=== PATIENT | male | born 1940 | race Hispanic/Latino ===

== ENCOUNTER 2017-05-11 10:52 | Inpatient (IN) | payer MEDICARE ==
[2017-05-11 11:04] VITALS: RESP 20
[2017-05-11 11:58] LABS: BASO # 0.1 K/uL (0.0-0.2); BASO % 0.8 % (0.0-2.0); EOS # 0.1 K/uL (0.0-0.7); EOS % 1.5 % (0.0-4.0); LYMPH # 1.6 K/uL (1.0-4.3); LYMPH % 21.4 % (20.0-40.0); MEAN CORPUSCULAR HGB CONC 33.7 g/dL (33.0-37.0); MEAN PLATELET VOLUME 7.7 fL (7.2-11.7); MONO # 0.6 K/uL (0.0-0.8); MONO % 7.8 % (0.0-10.0); NEUT # 5.3 K/uL (1.8-7.0); NEUT % 68.5 % (50.0-75.0); RBC 5.17 Mil/uL (4.40-5.90); RED CELL DISTRIBUTION WIDTH 14.5 % (11.5-14.5); WHITE BLOOD COUNT 7.7 K/uL (4.8-10.8)
[2017-05-11 12:14] LABS: ALB/GLOB RATIO 1.1 (1.0-2.1); ALBUMIN 4.2 g/dL (3.5-5.0); ALT/SGPT 29 U/L (21-72); AST/SGOT 31 U/L (17-59); BLOOD UREA NITROGEN 17 mg/dL (9-20); GFR AFRICAN-AMERICAN > 60; GFR NON-AFRICAN AMERICAN > 60
[2017-05-11] MEDS ORDERED: Iohexol 350mg/ml 100 ML ONE (13:38)
--- NOTE | 2017-05-11 15:07 | CT ---
PROCEDURE: CT scan of the neck dated 05/11/2017 HISTORY: Left mandibular mass; rule out abscess COMPARISON: No prior study available for comparison TECHNIQUE: Contiguous helical/ transaxial sections of of the neck with intravenous contrast. Coronal and sagittal reformats generated. Intravenous contrast dose: 100 cc of Visipaque 320 Radiation dose: DLP 438.04 mGy-cm This CT exam was performed using one or more of the following dose reduction techniques: Automated exposure control, adjustment of the mA and/or kV according to patient size, and/or use of iterative reconstruction technique. FINDINGS: The at current study reveals large elliptical shaped soft tissue density (suspected phlegmon) of anterior to the left body of the mandible which abuts the buccal surface of the mandible. There 2 localized areas of what may represent pre-existing radicular cystic changes and possibly now destructive changes of the mandible itself B-mode posterior of which appears to be associate with a small overlying low attenuation possibly representing an abscess. , estimated size proximally 12.6 x 6.2 mm. The smaller radicular cystic changes within the left anterior and right parasagittal on mandible is well. . NASOPHARYNX: Unremarkable. SUPRAHYOID NECK: Unremarkable oropharynx, oral cavity, parapharyngeal space and retropharyngeal space. INFRAHYOID NECK: Unremarkable larynx, hypopharynx, and supraglottic space. Vocal cords intact. GLANDS: There is very slight asymmetry of the submandibular glands left-sided which is slightly larger than the right - nonspecific. Enlarged heterogeneous thyroid gland extending inferiorly into the superior mediastinum on the left side. . The thyroid gland contains multiple varying sized low-attenuation foci -nodules with scattered calcifications. Thyroid ultrasound and/or nuclear isotope imaging recommended. The thyroid gland does compresses and mildly displaces trachea to the right side CERVICAL SPINE: Multilevel degenerative spondylosis of the cervical spine. Note also made of a apparent spina bifida occulta involving C2 segment. VASCULAR STRUCTURES: Cervical vasculature is patent throughout though there are some minor partially calcified atherosclerotic plaque changes seen both carotid bifurcations right greater than left. OTHER FINDINGS: Minor on scarring changes right lung apex. IMPRESSION: Findings most likely represent soft tissue phlegmon with subjacent small abscess abutting the left aspect of the mandible with incomplete localized destructive changes of subjacent cortex along the buccal surface of the mandible. Mild subcutaneous tissues seen in the overlying subcutaneous tissues. There appears to be enlarged left-sided submandibular lymph node measuring nearly 19 mm and smaller submandibular lymph nodes slightly posteriorly located measuring approximately 11 mm. Prominent on left-sided jugulodigastric lymph node measuring approximately 11 mm. Smaller on lymph nodes seen within both posterior cervical spaces right jugulodigastric and right submandibular regions. Markedly enlarged heterogeneous thyroid gland with scattered calcification. Thyroid ultrasound followup and/or nuclear isotope imaging recommended
[2017-05-11] MEDS ORDERED: Clindamycin 600 MG in Sodium Chloride 0.9% 100 ML IV STA (15:47)
[2017-05-11] MEDS ORDERED: Clindamycin 600mg/50ml NS 600 MG/50 ML BAG IVPB ONE (16:00)
--- NOTE | 2017-05-11 16:26 | C.PDOC ---
History Of Present Illness 77 year old male presents to the ED c/o left facial swelling for the past month. Patient was seen previously and prescribed antibiotics Augmentin, Flagyl and also Motrin but he reports not improvement. Patient has not been able to see an oral surgeon as of yet, and presents today concerned about cancer. Patient denies difficulty swallowing, fever, chills, nausea, vomit, diarrhea, blurry vision. Time Seen by Provider: 05/11/17 11:24 Chief Complaint (Nursing): Medical Clearance History Per: Patient History/Exam Limitations: no limitations Onset/Duration Of Symptoms: Days Current Symptoms Are (Timing): Still Present Reports Recently: Treated By A Physician Recent travel outside of the [place]: No Additional History Per: Patient Past Medical History Reviewed: Historical Data, Nursing Documentation, Vital Signs Vital Signs: Last Vital Signs Temp 98.1 F 05/11/17 14:55 Pulse 78 05/11/17 14:55 Resp 20 05/11/17 14:55 BP 125/82 05/11/17 14:55 Pulse Ox 98 05/11/17 16:26 - Medical History PMH: HTN Surgical History: Hernia Repair - [facility] Procedures EXPLORATORY LAPAROTOMY (01/26/97) INCIS HERNIA REPAIR-GRFT (09/09/98) Family History: States: Unknown Family Hx - Social History Hx Tobacco Use: Yes Hx Alcohol Use: No Hx Substance Use: No - Immunization History Hx Tetanus Toxoid Vaccination: No Hx Influenza Vaccination: No Hx Pneumococcal Vaccination: No Review Of Systems Constitutional: Negative for: Fever, Chills ENT: Positive for: Mouth Pain, Mouth Swelling Cardiovascular: Negative for: Chest Pain Respiratory: Negative for: Cough Skin: Negative for: Rash Neurological: Negative for: Weakness, Numbness Physical Exam - Physical Exam Appears: Non-toxic, No Acute Distress Skin: Normal Color, Warm, Dry Head: Atraumatic, Normacephalic Eye(s): bilateral: Normal Inspection Ear(s): Bilateral: Normal Nose: No Discharge Oral Mucosa: Moist, No Trismus Tongue: No Swelling Lips: No Swelling Teeth: Caries (multiple ), Other (swelling/abscess left lower molar. Pre molar teeth swelling involving the ramus of the mandible) Gingiva: Swelling, Tender Neck: Normal ROM, Supple Chest: Symmetrical Extremity: Normal ROM, No Tenderness, No Swelling Neurological/Psych: Oriented x3, Normal Speech Gait: Steady ED Course And Treatment - Laboratory Results Result Diagrams: 05/11/17 11:50 05/11/17 11:50 O2 Sat by Pulse Oximetry: 98 (ON RA) Pulse Ox Interpretation: Normal - CT Scan/US CT soft neck tissue Other Rad Studies (CT/US): Read By Radiologist, Radiology Report Reviewed CT/US Interpretation: PROCEDURE: CT scan of the neck dated 05/11/2017. HISTORY : Left mandibular mass; rule out abscess. COMPARISON: No prior study available for comparison. TECHNIQUE: Contiguous helical/ transaxial sections of of the neck with intravenous contrast. Coronal and sagittal reformats generated. Intravenous contrast dose: 100 cc of Visipaque 320. Radiation dose : DLP 438.04 mGy-cm. This CT exam was performed using one or more of the following dose reduction techniques: Automated exposure control, adjustment of the mA and/or kV according to patient size, and/or use of iterative reconstruction technique. FINDINGS: The at current study reveals large elliptical shaped soft tissue density (suspected phlegmon) of anterior to the left body of the mandible which abuts the buccal surface of the mandible. There 2 localized areas of what may represent pre-existing radicular cystic changes and possibly now destructive changes of the mandible itself B-mode posterior of which appears to be associate with a small overlying low attenuation possibly representing an abscess. , estimated size proximally 12.6 x 6.2 mm. The smaller radicular cystic changes within the left anterior and right parasagittal on mandible is well. . NASOPHARYNX: Unremarkable. SUPRAHYOID NECK: Unremarkable oropharynx, oral cavity, parapharyngeal space and retropharyngeal space. INFRAHYOID NECK: Unremarkable larynx, hypopharynx, and supraglottic space. Vocal cords intact. GLANDS: There is very slight asymmetry of the submandibular glands left-sided which is slightly larger than the right - nonspecific. Enlarged heterogeneous thyroid gland extending inferiorly into the superior mediastinum on the left side. . The thyroid gland contains multiple varying sized low-attenuation foci -nodules with scattered calcifications. Thyroid ultrasound and/or nuclear isotope imaging recommended. The thyroid gland does compresses and mildly displaces trachea to the right side. CERVICAL SPINE: Multilevel degenerative spondylosis of the cervical spine. Note also made of a apparent spina bifida occulta involving C2 segment. VASCULAR STRUCTURES: Cervical vasculature is patent throughout though there are some minor partially calcified atherosclerotic plaque changes seen both carotid bifurcations right greater than left. OTHER FINDINGS: Minor on scarring changes right lung apex. IMPRESSION: Findings most likely represent soft tissue phlegmon with subjacent small abscess abutting the left aspect of the mandible with incomplete localized destructive changes of subjacent cortex along the buccal surface of the mandible. Mild subcutaneous tissues seen in the overlying subcutaneous tissues. There appears to be enlarged left-sided submandibular lymph node measuring nearly 19 mm and smaller submandibular lymph nodes slightly posteriorly located measuring approximately 11 mm. Prominent on left-sided jugulodigastric lymph node measuring approximately 11 mm. Smaller on lymph nodes seen within both posterior cervical spaces right jugulodigastric and right submandibular regions. Markedly enlarged heterogeneous thyroid gland with scattered calcification. Thyroid ultrasound followup and/or nuclear isotope imaging recommended Medical Decision Making Medical Decision Making: Assessment: osteo/dental abscess Plan: * CT neck soft tissue * Labs * Clindamycin 600 mg in 100 ml IV Patient will be admitted to the Hospital under Dr. Shaheen Baird's service Disposition Discussed With Dr.: Patricia Baird Doctor Will See Patient In The: Hospital Counseled Patient/Family Regarding: Studies Performed, Diagnosis - Disposition Disposition: HOSPITALIZED Disposition Time: 16:26 Condition: FAIR Forms: [facility] (Ukrainian) - Clinical Impression Clinical Impression: Osteomyelitis, Dental abscess - Scribe Statement The provider has reviewed the documentation as recorded by the Scribe Teo Box All medical record entries made by the Scribe were at my direction and personally dictated by me. I have reviewed the chart and agree that the record accurately reflects my personal performance of the history, physical exam, medical decision making, and the department course for this patient. I have also personally directed, reviewed, and agree with the discharge instructions and disposition.
[2017-05-11] MEDS: Piperacill/Tazo 3.375gm in Dex 3.375 GM/50 ML BAG IVPB SCH (21:50)
[2017-05-11] MEDS ORDERED: Piperacillin/Tazobact 3.375 GM in Sodium Chloride 100 ML IVPB SCH (22:00)
[2017-05-12] MEDS: Piperacill/Tazo 3.375gm in Dex 3.375 GM/50 ML BAG IVPB SCH ×2 (05:24→13:23)
[2017-05-12] MEDS: Enoxaparin 40 mg Syringe SC SCH (09:09)
[2017-05-12] MEDS: Pantoprazole 40 mg EC Tab PO SCH (09:09)
--- NOTE | 2017-05-12 11:30 | CP.PCM.HP ---
Present on Admission - Present on Admission Any Indicators Present on Admission: No Past Patient History - Past Medical History & Family History Past Medical History?: Yes - Past Social History Smoking Status: Former Smoker - CARDIAC Hx Hypertension: Yes - MUSCULOSKELETAL/RHEUMATOLOGICAL Hx Falls: No - PSYCHIATRIC Hx Substance Use: No - ANESTHESIA Hx Anesthesia: No Hx Anesthesia Reactions: No Meds Allergies/Adverse Reactions: Allergies Allergy/AdvReac Type Severity Reaction Status Date / Time amoxicillin [From Augmentin] Allergy ITCHING Verified 05/12/17 16:44 clavulanic acid Allergy ITCHING Verified 05/12/17 16:44 [From Augmentin] Penicillins Allergy ITCHING Verified 05/12/17 16:44 piperacillin [From Zosyn] Allergy ITCHING Verified 05/12/17 16:44 tazobactam [From Zosyn] Allergy ITCHING Verified 05/12/17 16:44 Physical Exam - Constitutional Appears: Well - Head Exam Head Exam: ATRAUMATIC, NORMAL INSPECTION, NORMOCEPHALIC - Eye Exam Eye Exam: EOMI, Normal appearance, PERRL Pupil Exam: NORMAL ACCOMODATION, PERRL - ENT Exam ENT Exam: Mucous Membranes Moist, Normal Exam - Neck Exam Neck exam: Positive for: Normal Inspection - Respiratory Exam Respiratory Exam: Decreased Breath Sounds - Cardiovascular Exam Cardiovascular Exam: REGULAR RHYTHM, +S1, +S2 - GI/Abdominal Exam GI & Abdominal Exam: Diminished Bowel Sounds, Soft - Rectal Exam Rectal Exam: Deferred Results - Vital Signs Recent Vital Signs: Last Vital Signs Temp 97.4 F L 05/12/17 07:35 Pulse 66 05/12/17 07:35 Resp 20 05/12/17 07:35 BP 138/80 05/12/17 07:35 Pulse Ox 95 05/12/17 07:35 - Labs Result Diagrams: 05/11/17 11:50 05/11/17 11:50 Labs: Laboratory Results - last 24 hr 05/11/17 05/11/17 11:50 11:50 WBC 7.7 RBC 5.17 Hgb 15.0 Hct 44.5 MCV 86.0 MCH 29.0 MCHC 33.7 RDW 14.5 Plt Count 190 MPV 7.7 Neut % (Auto) 68.5 Lymph % (Auto) 21.4 Hudson % (Auto) 7.8 Eos % (Auto) 1.5 Baso % (Auto) 0.8 Neut # (Auto) 5.3 Lymph # (Auto) 1.6 Hudson # (Auto) 0.6 Eos # (Auto) 0.1 Baso # (Auto) 0.1 Sodium 139 Potassium 4.7 Chloride 100 Carbon Dioxide 27 Anion Gap 17 BUN 17 Creatinine 0.9 Est GFR ( Amer) > 60 Est GFR (Non-Af Amer) > 60 Random Glucose 87 Calcium 9.0 Total Bilirubin 0.6 AST 31 ALT 29 Alkaline Phosphatase 63 Total Protein 7.9 Albumin 4.2 Globulin 3.7 Albumin/Globulin Ratio 1.1 Assessment & Plan (1) Dental abscess Status: Acute (2) Osteomyelitis Status: Acute (3) Avulsion of skin Status: Acute (4) Right rib fracture Status: Acute - Assessment and Plan (Free Text) Plan: Continue IV Zosyn continue clindamycin ID consult ENT consult discussed with Dr. Martin who is covering the ENT doctor by him who clearly said that this patient needs to be seen by oral surgeon so tried to reach the floor staff to call [facility] and I tried to reach [facility] also try to reach it unable to get in touch with the FS surgeon also advised to speak to floor to try to transfer the patient's Continue IV clindamycin Continue IV Zosyn ID consult Patient may be transferred to any other hospital for further workup discussed with the patient Pain medications given to control the pain
[2017-05-12] MEDS: Morphine 4 MG/ML VIAL IVP PRN ×2 (14:09→22:43)
--- NOTE | 2017-05-12 16:33 | CP.PCM.PN ---
Subjective - Date & Time of Evaluation Date of Evaluation: 05/12/17 Time of Evaluation: 16:12 - Subjective Subjective: PT SEEN THIS AFTERNOON BY DR. Augustine ANDREWS. PT ADMITS TO LEFT FACIAL SWELLING X1 MONTH. ON 05/10/17 HE SAW A DENTIST IN [place], WHO EXTRACTED A TOOTH WITHOUT PRIOR EVALUATION (PER PT). PT ALSO ADMITS THAT AT THIS TIME HE WAS STARTED ON AUGMENTIN, FLAGYL, AND MOTRIN. PT SEEN TODAY AT BEDSIDE SCRATCHING HIS CHEST AND BACK; ADMITS THAT HE HAS HAD ITCHINESS TO HIS GENERAL BODY FOR "ABOUT 2 DAYS" AND AGAIN TODAY AFTER RECEIVING THE ZOSYN IV. ATTENDING NOR PERSONAL INSURANCE ADVISOR MADE AWARE OF THIS LIKELY ALLERGIC RX TO PCN. NEW ALLERGY DISCUSSED WITH PT AND EXECUTIVE VICE PRESIDENT OF SALES ON EXAM, PT APPEARS TO BE IN NAD; RESP EASY, UNLABORED; NO DROOLING OR DYSPHAGIA NOTED; SPEECH CLEAR, NO GURGLING R SLURRING OF WORDS. [address] DR. ANDREWS: DR NOLASCO ([facility]) WHO DOES NOT COME HERE; AND DR. RIOS WHO STATED THAT ITS BETTER TO TRANSFER THE PT TO ANOTHER FACILITY THAT CAN DRAIN THIS DENTAL ABSCESS NOTED ON THE CT SCAN (SEE OFFICIAL REPORT). PER DR. Rubina ANDREWS, TRANSFER TO [facility] UNDER THE SERVICE OF THEIR [facility] SURGEON PENDING THEY ACCEPT PT UNDER THEIR SERVICE. I SPOKE TO 3 DIFFERENT OPERATORS; ALL OF WHICH PROVIDED ME WITH THEIR OMF SURGEON STAGE SETTING PAINTER APPRENTICE (DR. FEI ODONNELL); I EVEN REQUESTED TO SPEAK WITH THE [facility] RESIDENTS. I WAS TRANSFERRED TO THE DENTAL OFFICE EACH TIME AND LEFT MESSAGE WITH NO CALL BACK. I CALLED THE DENTAL CLINIC AT [phone] APPROXIMATELY 15 TIMES WITH NO ANSWER, NO ANSWERING SERVICE, AND NO VOICEMEAIL. I NOTIFIED DR. ANDREWS AND HE INSISTS ON TRANSFERRING THE PT TO [facility]. I HAVE DISCUSSED THE CASE W MY PHYSICIAN ADVISOR, DR. HAINES, WHO ALSO TRIED CALLING DR. ODONNELL'S OFFICE WITH NO ANSWER. HE DISCUSSED THIS WITH DR. Rubina ANDREWS WELL, WHO IS STILL INSISTENT ON PT GOING TO [facility]. ENDORSED THE CASE TO PAUL SCHMIDT, WHO WILL FOLLOW UP AND PLACE CALL TO THE OFFICE TO TRY AND FACILITATE TRANSFER PENDING AGREEMENT WITH OM SURGEON THAT SHE WILL TAKE THE PT UNDER HER CARE. NO FURTHER ORDERS AT THIS TIME. Objective - Vital Signs/Intake and Output Vital Signs (last 24 hours): Temp Pulse Resp BP Pulse Ox 97.4 F L 66 20 138/80 95 05/12/17 07:35 05/12/17 07:35 05/12/17 07:35 05/12/17 07:35 05/12/17 07:35 - Medications Medications: Current Medications Enoxaparin Sodium (Lovenox) 40 mg SC DAILY [facility] Last Admin: 05/12/17 09:09 Dose: Not Given Clindamycin Phosphate 900 mg/ (Sodium Chloride) 56 mls @ 100 mls/hr IVPB Q8H TISH PRN Reason: Protocol Ibuprofen (Motrin Tab) 800 mg PO Q6 PRN PRN Reason: Pain, moderate (4-7) Losartan Potassium (Cozaar) 25 mg PO DAILY [facility] Last Admin: 05/12/17 09:10 Dose: Not Given Morphine Sulfate (Morphine) 2 mg IVP Q4 PRN PRN Reason: Pain, severe (8-10) Last Admin: 05/12/17 14:09 Dose: 2 mg Pantoprazole Sodium (Protonix Ec Tab) 40 mg PO DAILY [facility] Last Admin: 05/12/17 09:09 Dose: 40 mg Pneumococcal Polyvalent Vaccine (Pneumovax 23 Vaccine) 0.5 ml IM .ONCE ONE Stop: 05/13/17 10:01 - Labs Labs: 05/11/17 11:50 05/11/17 11:50
--- NOTE | 2017-05-12 17:08 | CP.PCM.PN ---
Subjective - Date & Time of Evaluation Date of Evaluation: 05/12/17 Time of Evaluation: 17:06 - Subjective Subjective: FOLLOW UP WITH THE DENTAL CLINIC OMF SURGEON/ EULALIAE TO GET ANYONE TRY TO CONTACT [facility] OMF RESIDENT WELL FOR POSSIBLE TRANSFER NOT ABLE TO GET IN TOUCH WITH ANYONE NO FURTHER ORDER Objective - Vital Signs/Intake and Output Vital Signs (last 24 hours): Temp Pulse Resp BP Pulse Ox 97.6 F 72 20 115/79 98 05/12/17 15:00 05/12/17 15:00 05/12/17 15:00 05/12/17 15:00 05/12/17 15:00 Intake and Output: 05/12/17 05/12/17 06:59 18:59 Intake Total 550 Balance 550 - Medications Medications: Current Medications Enoxaparin Sodium (Lovenox) 40 mg SC DAILY [facility] Last Admin: 05/12/17 09:09 Dose: Not Given Clindamycin Phosphate 900 mg/ (Sodium Chloride) 106 mls @ 100 mls/hr IVPB Q8H TISH PRN Reason: Protocol Ibuprofen (Motrin Tab) 800 mg PO Q6 PRN PRN Reason: Pain, moderate (4-7) Losartan Potassium (Cozaar) 25 mg PO DAILY [facility] Last Admin: 05/12/17 09:10 Dose: Not Given Morphine Sulfate (Morphine) 2 mg IVP Q4 PRN PRN Reason: Pain, severe (8-10) Last Admin: 05/12/17 14:09 Dose: 2 mg Pantoprazole Sodium (Protonix Ec Tab) 40 mg PO DAILY [facility] Last Admin: 05/12/17 09:09 Dose: 40 mg Pneumococcal Polyvalent Vaccine (Pneumovax 23 Vaccine) 0.5 ml IM .ONCE ONE Stop: 05/13/17 10:01 - Labs Labs: 05/11/17 11:50 05/11/17 11:50
--- NOTE | 2017-05-12 18:52 | CP.PCM.CON ---
History of Present Illness - History of Present Illness History of Present Illness: 77 year old male presents to the ED c/o left facial swelling for the past month. Patient was seen previously and prescribed antibiotics Augmentin, Flagyl and also Motrin but he reports not improvement. Patient has not been able to see an oral surgeon as of yet, and presents today concerned about cancer. Patient denies difficulty swallowing, fever, chills, nausea, vomit, diarrhea, blurry vision. rx for periodontal abscess - given Zosyn but develop=ed allergic reaction started Clinda recc: OMFS eval cecil cont IV antibiotics - Medical History PMH: HTN Surgical History: Hernia Repair - [facility] Procedures EXPLORATORY LAPAROTOMY (01/26/97) INCIS HERNIA REPAIR-GRFT (09/09/98) Past Patient History - Past Medical History & Family History Past Medical History?: Yes - Past Social History Smoking Status: Former Smoker - CARDIAC Hx Hypertension: Yes - MUSCULOSKELETAL/RHEUMATOLOGICAL Hx Falls: No - PSYCHIATRIC Hx Substance Use: No - ANESTHESIA Hx Anesthesia: No Hx Anesthesia Reactions: No Meds Allergies/Adverse Reactions: Allergies Allergy/AdvReac Type Severity Reaction Status Date / Time amoxicillin [From Augmentin] Allergy ITCHING Verified 05/12/17 16:44 clavulanic acid Allergy ITCHING Verified 05/12/17 16:44 [From Augmentin] Penicillins Allergy ITCHING Verified 05/12/17 16:44 piperacillin [From Zosyn] Allergy ITCHING Verified 05/12/17 16:44 tazobactam [From Zosyn] Allergy ITCHING Verified 05/12/17 16:44 - Medications Medications: Current Medications Enoxaparin Sodium (Lovenox) 40 mg SC DAILY [facility] Last Admin: 05/12/17 09:09 Dose: Not Given Clindamycin Phosphate 900 mg/ (Sodium Chloride) 106 mls @ 100 mls/hr IVPB Q8H TISH PRN Reason: Protocol Azithromycin 500 mg/ Sodium (Chloride) 250 mls @ 166.667 mls/hr IVPB Q24H TISH PRN Reason: Protocol Ibuprofen (Motrin Tab) 800 mg PO Q6 PRN PRN Reason: Pain, moderate (4-7) Losartan Potassium (Cozaar) 25 mg PO DAILY [facility] Last Admin: 05/12/17 09:10 Dose: Not Given Morphine Sulfate (Morphine) 2 mg IVP Q4 PRN PRN Reason: Pain, severe (8-10) Last Admin: 05/12/17 14:09 Dose: 2 mg Pantoprazole Sodium (Protonix Ec Tab) 40 mg PO DAILY [facility] Last Admin: 05/12/17 09:09 Dose: 40 mg Pneumococcal Polyvalent Vaccine (Pneumovax 23 Vaccine) 0.5 ml IM .ONCE ONE Stop: 05/13/17 10:01 Results - Vital Signs Recent Vital Signs: Last Vital Signs Temp 97.6 F 05/12/17 15:00 Pulse 72 05/12/17 15:00 Resp 20 05/12/17 15:00 BP 115/79 05/12/17 15:00 Pulse Ox 98 05/12/17 15:00 - Labs Result Diagrams: 05/11/17 11:50 05/11/17 11:50
[2017-05-12] MEDS ORDERED: Azithromycin 500 MG in Sodium Chloride 0.9% 250 ML IVPB SCH (20:00)
[2017-05-13 06:46] LABS: HEMOGLOBIN 14.3 g/dL (12.0-18.0); MEAN CELL VOLUME 85.7 fL (80.0-94.0); MEAN CORPUSCULAR HEMOGLOBIN 29.3 pg (27.0-31.0); MEAN CORPUSCULAR HGB CONC 34.1 g/dL (33.0-37.0); MEAN PLATELET VOLUME 7.7 fL (7.2-11.7); RBC 4.89 Mil/uL (4.40-5.90); RED CELL DISTRIBUTION WIDTH 14.6 % (11.5-14.5); WHITE BLOOD COUNT 6.3 K/uL (4.8-10.8)
[2017-05-13 06:57] LABS: BLOOD UREA NITROGEN 16 mg/dL (9-20); CALCIUM 8.7 mg/dl (8.6-10.4); GFR AFRICAN-AMERICAN > 60; GFR NON-AFRICAN AMERICAN > 60
[2017-05-13 09:02] VITALS: BP 108/72; PULSE 90; TEMP 98.5; O2SAT 97
[2017-05-13] MEDS: Pantoprazole 40 mg EC Tab PO SCH (09:46)
[2017-05-13] MEDS: Enoxaparin 40 mg Syringe SC SCH (09:46)
[2017-05-13] MEDS ORDERED: Pneumococcal 23-Valent Vaccine IM ONE (10:00)
--- NOTE | 2017-05-13 13:30 | CP.PCM.PN ---
Subjective - Date & Time of Evaluation Date of Evaluation: 05/13/17 Time of Evaluation: 13:30 - Subjective Subjective: -AFTER DISCHARGE TODAY FROM [facility], PLEASE GO DIRECTLY TO EITHER [facility] (IN [place]) OR [facility] ([facility]) IN [place]. -ONE OF THESE HOSPITALS WILL BE ABLE TO PROVIDE THE SERVICE YOU NEED FOR YOUR DENTAL ABSCESS (YOU NEED AN ORAL MAXILLOFACIAL SURGEON). -YOU HAVE BEEN STARTED ON THE HOSPITAL ON CLEOCIN, AN ANTIBIOTIC. YOU ARE BEING PROVIDED A PRESCRIPTION FOR CLEOCIN ORALLY TO CONTINUE FOR 7 MORE DAYS. -IF YOU GET ADMITTED TO [facility] OR [facility], DO NOT TAKE THIS PRESCRIPTION MEDICINE; TAKE WHAT THEY GIVE YOU. -MAKE SURE YOU TAKE COPIES OF YOUR CAT SCAN AND THE BLOOD WORK WITH YOU TO THE OTHER HOSPITAL. Objective - Vital Signs/Intake and Output Vital Signs (last 24 hours): Temp Pulse Resp BP Pulse Ox 98.5 F 90 20 108/72 97 05/13/17 08:00 05/13/17 08:00 05/13/17 08:00 05/13/17 08:00 05/13/17 08:00 Intake and Output: 05/13/17 05/13/17 06:59 18:59 Intake Total 700 Balance 700 - Medications Medications: Current Medications Enoxaparin Sodium (Lovenox) 40 mg SC DAILY [facility] Last Admin: 05/13/17 09:46 Dose: Not Given Clindamycin Phosphate 900 mg/ (Sodium Chloride) 106 mls @ 100 mls/hr IVPB Q8H TISH PRN Reason: Protocol Last Admin: 05/13/17 11:48 Dose: 100 mls/hr Azithromycin 500 mg/ Sodium (Chloride) 250 mls @ 166.667 mls/hr IVPB Q24H TISH PRN Reason: Protocol Last Admin: 05/12/17 20:33 Dose: 166.667 mls/hr Ibuprofen (Motrin Tab) 800 mg PO Q6 PRN PRN Reason: Pain, moderate (4-7) Losartan Potassium (Cozaar) 25 mg PO DAILY [facility] Last Admin: 05/13/17 09:46 Dose: 25 mg Morphine Sulfate (Morphine) 2 mg IVP Q4 PRN PRN Reason: Pain, severe (8-10) Last Admin: 05/12/17 22:43 Dose: 2 mg Pantoprazole Sodium (Protonix Ec Tab) 40 mg PO DAILY [facility] Last Admin: 05/13/17 09:46 Dose: 40 mg - Labs Labs: 05/13/17 06:24 05/13/17 06:24
== END 2017-05-13 14:00 | disposition home or self-care (01) | DRG 158 ==
LOC: C.ER 10:52 → C.9E 16:26 → C.3T 18:35
PROVIDERS: ADMIT Internal Medicine Nephrology; ATTEND Internal Medicine Nephrology
DX: K04.7 Periapical abscess without sinus (principal); S22.31XA Fracture of one rib, right side, initial encounter for closed fracture; M86.9 Osteomyelitis, unspecified; I10 Essential (primary) hypertension; K05.219 Aggressive periodontitis, localized, unspecified severity; Z87.891 Personal history of nicotine dependence; X58.XXXA Exposure to other specified factors, initial encounter